=== PATIENT | male | born 1980 | race Two or more races ===

== ENCOUNTER 2021-08-18 17:15 | Emergency (ER) | payer OTHER ==
[2021-08-18 17:46] VITALS: BP 141/89; PULSE 74; TEMP 98.4; BMI 30.9
[2021-08-19 23:06] LABS: SARS-CoV-2 NAA Detected (Not Detected)
== END 2021-08-18 18:13 | disposition home or self-care (01) ==
LOC: EDSEX 17:15 → FER 17:15
DX: R50.9 Fever, unspecified (principal); R05.9 Cough, unspecified; R07.0 Pain in throat
CPT/HCPCS: 99283-25; C9803; U0003; U0005